=== PATIENT | male | born 1980 | race Two or more races ===

== ENCOUNTER 2019-03-12 13:18 | Inpatient (IN) | payer OTHER, MEDICAID ==
[~2019-03-12] VITALS: Ht 188 cm; Wt 86.2 kg
[2019-03-12] MEDS ORDERED: LEVOFLOXACIN 750MG PREMIX 150 ML IV ONE (14:00)
[2019-03-12] MEDS ORDERED: SODIUM CHLORIDE 0.9% 1000ML BAG (SEPSIS BOLUS) IV ONE (14:00)
[2019-03-12] MEDS ORDERED: LORAZEPAM 2MG/ML CPJ IV ONE (14:00)
[2019-03-12] MEDS ORDERED: FOLIC ACID 1 MG, THIAMINE HCL 100 MG, MVI, ADULT NO.1 10 ML in DEXTROSE 5% WATER 1,000 ML IV ONE ×4 (14:00)
[2019-03-12] MEDS ORDERED: ACETAMINOPHEN 325MG TABLET PO ONE (14:00)
[2019-03-12 14:23] LABS: BASOPHILS % 0.3 % (0.0-2.0); EOSINOPHILS % 0.1 % (0.0-5.0); HEMATOCRIT. 45.7 % (42.0-52.0); HEMOGLOBIN. 15.6 g/dL (14.0-18.0); LYMPHOCYTES % 13.1 % (20.0-50.0); MEAN CORPUSCULAR HEMOGLOBIN 33.5 pg (28.0-32.0); MEAN CORPUSCULAR VOLUME 97.8 fL (80.0-94.0); MEAN PLATELET VOLUME 8.5 fl (7.4-10.4); NEUTROPHILS % 81.5 % (40.0-76.0); PLATELET 184 x1000/uL (130-400); RED BLOOD CELL COUNT 4.67 mill/uL (4.7-6.1); RED CELL DISTRIBUTION WIDTH 13.6 % (11.6-14.6)
[2019-03-12 14:30] LABS: CHLORIDE 103 mEq/L (98-107)
[2019-03-12 14:33] LABS: INR 1.1; PARTIAL THROMBOPLASTIN TIME 27.2 sec (23.4-31.0); PROTHROMBIN TIME 10.9 sec (9.6-11.0)
[2019-03-12 14:35] LABS: ETHANOL BLOOD < 10 mg/dL
[2019-03-12] MEDS ORDERED: LEVETIRACETAM 500MG PREMIX 100 ML IV ONE (14:45)
[2019-03-12 16:49] LABS: CLARITY URINE CLEAR (CLEAR); COLOR URINE YELLOW (YELLOW); KETONES URINE NEGATIVE (NEGATIVE); LEUKOCYTE ESTERASE URINE NEGATIVE (NEGATIVE); NITRITE URINE NEGATIVE (NEGATIVE); OCCULT BLOOD URINE NEGATIVE (NEGATIVE); PROTEIN URINE 1+ (NEGATIVE); UROBILINOGEN URINE 0.2 E.U./dL (0.2-1.0)
[2019-03-12 17:08] LABS: *AMPHETAMINES SCREEN URINE NEGATIVE (NEGATIVE); *BARBITURATES SCREEN URINE NEGATIVE (NEGATIVE); *BENZODIAZEPINES SCREEN URINE NEGATIVE (NEGATIVE); *COCAINE SCREEN URINE NEGATIVE (NEGATIVE)
[2019-03-12 17:09] LABS: CANNABINOID URINE SCREEN NEGATIVE (NEGATIVE); METHADONE URINE SCREEN NEGATIVE (NEGATIVE); OPIATES URINE SCREEN PRESUMTIVE POSITIVE (NEGATIVE); PHENCYCLIDINE URINE SCREEN NEGATIVE (NEGATIVE)
[2019-03-12 21:45] VITALS: BP 149/101
[2019-03-13] VITALS: BP 119/69
[2019-03-13] MEDS ORDERED: ONDANSETRON HCL 4MG/2ML INJ IV PRN
[2019-03-13] MEDS ORDERED: CLONIDINE 0.1MG TABLET PO PRN
[2019-03-13] MEDS ORDERED: ACETAMINOPHEN 325MG TABLET PO PRN
[2019-03-13] MEDS ORDERED: LORAZEPAM 2MG/ML CPJ IV PRN
[2019-03-13] MEDS ORDERED: MVI, ADULT NO.1 10 ML, FOLIC ACID 1 MG, THIAMINE HCL 100 MG in SODIUM CHLORIDE 0.9% 1,0... IV SCH ×4 (01:00)
[2019-03-13 04:00] VITALS: BP 126/66
[2019-03-13 06:40] LABS: BASOPHILS % 0.3 % (0.0-2.0); EOSINOPHILS % 0.8 % (0.0-5.0); HEMATOCRIT. 44.5 % (42.0-52.0); HEMOGLOBIN. 15.3 g/dL (14.0-18.0); LYMPHOCYTES % 25.2 % (20.0-50.0); MEAN CORPUSCULAR HEMOGLOBIN 33.6 pg (28.0-32.0); MEAN CORPUSCULAR VOLUME 97.7 fL (80.0-94.0); MONOCYTES % 9.8 % (2.0-8.0); NEUTROPHILS % 63.9 % (40.0-76.0); PLATELET 164 x1000/uL (130-400); RED BLOOD CELL COUNT 4.55 mill/uL (4.7-6.1); RED CELL DISTRIBUTION WIDTH 13.1 % (11.6-14.6)
[2019-03-13 06:41] LABS: CHLORIDE 106 mEq/L (98-107)
[2019-03-13 06:58] LABS: PHOSPHORUS 2.1 mg/dL (2.5-4.9)
[2019-03-13 08:00] VITALS: BP 134/96
[2019-03-13] MEDS ORDERED: LEVETIRACETAM 500 MG in SODIUM CHLORIDE 0.9% 100 ML IV SCH (09:00)
[2019-03-13] MEDS ORDERED: GADOBENATE DIMEGLUMINE 529 MG/ML 10ML IV ONE (09:56)
[2019-03-13 12:00] VITALS: BP 145/92
[2019-03-13 16:00] VITALS: BP 134/94
[2019-03-13 19:17] VITALS: BP 134/94
[2019-03-13] MEDS ORDERED: DEXT 5%/0.45% NACL 1000ML 1,000 ML IV SCH (23:53)
== END 2019-03-13 19:40 | disposition home or self-care (01) | DRG 53 ==
LOC: ER 13:18 → ENRESERV 20:47 → 7WST 21:39
PROVIDERS: ADMIT Internal Medicine; ATTEND Internal Medicine
DX: G40.909 Epilepsy, unspecified, not intractable, without status epilepticus (principal); G93.41 Metabolic encephalopathy; G93.89 Other specified disorders of brain; E87.2 Acidosis; F10.239 Alcohol dependence with withdrawal, unspecified; G31.9 Degenerative disease of nervous system, unspecified
CPT/HCPCS: 36415; 70553; 71045; 80305; 80320; 81003; 83605; 83735; 84100; 84145; 84484; 93005; 93970; 99291; A9577; J1953; J1956; J2060; J3411; J3490; J7030; J7050; J7070; G0480